=== PATIENT | female | born 1950 | race Caucasian/White ===

== ENCOUNTER 2017-01-29 11:31 | Emergency (ER) | payer OTHER ==
[~2017-01-29] VITALS: Wt 95.0 kg
[~2017-01-29 11:31] MED LIST: AMOX500T PO; BECL8.7A IH; FEXO180T61 PO; FLUO10CA66 PO; OMEP20CA9 PO
--- NOTE | 2017-01-29 12:24 | ERD ---
ER Documentation Chief Complaint Date/Time DATE: 01/29/17 TIME: 12:21 Chief Complaint LEFT KNEE INJURY S/P GLF, NO KO HPI 66-year-old female presents status post fall with left knee pain that occurred yesterday across the stone stair, and she also complains of generalized leg pain. She reports that she just returned from a flight from [place]. Patient states that she hit the front part of her knee, describes achy pain, worse with extension better with flexion, moderate pain, improved with meloxicam. She currently at this time denies chest pain or shortness of breath. ROS All systems reviewed and are negative except as per history of present illness. Medications Home Meds Active Scripts Hydrocodone/Acetaminophen ([place] 5-325 Tablet) 1 Each Tablet, 1 TAB PO Q6H Y for PAIN, #15 TAB Prov:NIKKO PADILLA PA-C 01/29/17 Reported Medications Fexofenadine Hcl* (Marjan*) 180 Mg Tablet, 180 MG PO DAILY 05/12/13 Omeprazole* (Prilosec*) 20 Mg Capsule.dr, 20 MG PO DAILY 05/12/13 Fluoxetine Hcl* (Prozac*) 10 Mg Capsule, 10 MG PO 05/12/13 Beclomethasone Dip* (Qvar 40*) 7.3 Gm Inha, 7.3 GM IH 05/12/13 Amoxicillin Trihydrate (Amoxicillin) 500 Mg Tablet, 500 MG PO TID 05/12/13 Allergies Allergies: Coded Allergies: cyclobenzaprine HCl (Verified Allergy, 05/12/13) propoxyphene HCl (Verified Allergy, 05/12/13) PMhx/Soc History of Surgery: Yes (SHOULDER,FINGER SURGERY) Anesthesia Reaction: No Hx Neurological Disorder: No Hx Respiratory Disorders: Yes (ASTHMA) Hx Cardiac Disorders: No Hx Psychiatric Problems: No Hx Miscellaneous Medical Probl: Yes (FIBROMYALGIA) Hx Alcohol Use: No Hx Substance Use: No Hx Tobacco Use: No Smoking Status: Never smoker Physical Exam Vitals Vital Signs Date Time Temp Pulse Resp B/P Pulse Ox O2 Delivery O2 Flow Rate FiO2 01/29/17 11:36 98.1 87 18 154/88 99 Physical Exam General: Well-developed, well-nourished. The patient appears in no acute distress. HEENT: Head is normocephalic, atraumatic. No scleral icterus. Neck: Supple. Nontender. Lungs: Clear to auscultation. Normal air movement. Heart: Regular rate and rhythm. S1 and S2 are normal. No murmurs, gallops, or rubs. Abdomen: Nondistended. Extremities: Right anterior knee has contusion, there is no joint line tenderness, patient's range of motion with flexion and extension, no bony deformities. Dorsalis pedis pulse 2+, negative Homans sign. Neurologic: Alert and oriented 3. No focal deficits. Normal speech and gait. Skin: Normal turgor. No rash or lesions. Results 24 hrs Current Medications Medications (Trade) Dose Ordered Sig/Nitin Route PRN Reason Start Time Stop Time Status Last Admin Dose Admin Acetaminophen/ Hydrocodone Bitart (Shaniko (10/325)) 1 tab ONCE ONCE PO 01/29/17 12:30 01/29/17 12:31 DC 01/29/17 12:18 PROCEDURE: Ultrasound of the left lower extremity venous system. CLINICAL INDICATION: Left leg pain and swelling, deep venous thrombosis TECHNIQUE: Gage scale with and without compression, color doppler, spectral doppler of the venous system of the left lower extremity was performed. Venous augmentation maneuvers were utilized. COMPARISON: No prior studies are available for comparison. FINDINGS: Common femoral vein: Patent. Femoral vein: Patent. Popliteal vein: Patent. Calf veins: Patent. No soft tissue abnormalities are identified. IMPRESSION: No evidence of a deep vein thrombosis within the left lower extremity. RPTAT: AADD .Leo Aguirre MD, Date Time Electronically viewed and signed by .Leo Aguirre MD, MD on 01/29/2017 13:31 .B/ CC: NIKKO PADILLA PA-C PROCEDURE: XR Knee. CLINICAL INDICATION: Left knee pain TECHNIQUE: 3 images of the left knee are available for review. COMPARISON: None available FINDINGS: There is no acute fracture. Alignment is normal. Small tricompartmental osteophytes are noted. There is a small knee joint effusion. IMPRESSION: 1. No radiographic evidence of acute osseous abnormality. 2. Small knee joint effusion. RPTAT: UU .Frank You MD, MD Date Time Electronically viewed and signed by .Frank You MD, on 01/29/2017 13: 24 .K/ Procedures/MDM ED course: Patient was given Shaniko for pain. MDM: 66-year-old female comes in with left-sided knee pain that was from blunt trauma yesterday, she also returns from a flight and has generalized leg pain. Patient has some swelling resulting from the injury, it appears to be knee contusion. There is no evidence of fracture, dislocation, DVT, cellulitis or limb threatening process. Patient's blood pressure was elevated (>120/80) but appears stable without evidence of hypertension emergency or urgency. The patient was counseled about the risks of hypertension and urged to pursue outpatient monitoring and therapy within a week with their primary care physician. Departure Diagnosis: Primary Impression: Knee injury Condition: NIKKO Mccall PA-C January 29, 2017 12:23
[2017-01-29] MEDS ORDERED: HYDROCODONE/APAP (10/325) TAB PO ONE (12:30)
--- NOTE | 2017-01-29 13:24 | RADRPT ---
PROCEDURE: XR Knee. CLINICAL INDICATION: Left knee pain TECHNIQUE: 3 images of the left knee are available for review. COMPARISON: None available FINDINGS: There is no acute fracture. Alignment is normal. Small tricompartmental osteophytes are noted. There is a small knee joint effusion. IMPRESSION: 1. No radiographic evidence of acute osseous abnormality. 2. Small knee joint effusion. RPTAT: UU .Frank You MD, MD Date Time Electronically viewed and signed by .Frank You MD, on 01/29/2017 13:24 .K/
--- NOTE | 2017-01-29 13:31 | RADRPT ---
PROCEDURE: Ultrasound of the left lower extremity venous system. CLINICAL INDICATION: Left leg pain and swelling, deep venous thrombosis TECHNIQUE: Gage scale with and without compression, color doppler, spectral doppler of the venous system of the left lower extremity was performed. Venous augmentation maneuvers were utilized. COMPARISON: No prior studies are available for comparison. FINDINGS: Common femoral vein: Patent. Femoral vein: Patent. Popliteal vein: Patent. Calf veins: Patent. No soft tissue abnormalities are identified. IMPRESSION: No evidence of a deep vein thrombosis within the left lower extremity. RPTAT: AADD .Leo Aguirre MD, MD Date Time Electronically viewed and signed by .Leo Aguirre MD, on 01/29/2017 13:31 .B/
[2017-01-29] MEDS ORDERED: HYDR-906 PO (13:42)
== END 2017-01-29 14:15 | disposition home or self-care (01) ==
LOC: FTE 11:31
DX: S89.92XA Unspecified injury of left lower leg, initial encounter (principal); J45.909 Unspecified asthma, uncomplicated; W18.09XA Striking against other object with subsequent fall, initial encounter; Y92.9 Unspecified place or not applicable
CPT/HCPCS: 73562; 93971

== ENCOUNTER 2019-01-03 17:18 | Inpatient (IN) | payer OTHER ==
[~2019-01-03] VITALS: Ht 172.7 cm; Wt 90.6 kg
[~2019-01-03 17:18] MED LIST changes: +FLUO10CA26 PO; -FLUO10CA66 PO; +HYDR-4011 PO
[2019-01-03] MEDS ORDERED: KETOROLAC 30 MG INJ IV STA (17:40)
--- NOTE | 2019-01-03 17:46 | STROKE ---
Date/Time of Note Date/Time of Note DATE: 01/03/19 TIME: 19:31 Patient Information General Arrival Date Age 68 Gender female Weight Patient History Current Medications Allergies: Coded Allergies: cyclobenzaprine HCl (Verified Allergy, 05/12/13) propoxyphene HCl (Verified Allergy, 05/12/13) History & Physical History of Present Illness 68yo woman h/o htn consulted for left sided numbness. Onset 430pm. Was driving and noted left face tingling and numbness spreading to left arm, associated with headache, left eye appearing droopy. Tingling spread to right side of lips. NIH Stroke Scale NIH Stroke Scale [id number] l4d LOC Questions: Xcenp1h LOC Commands: Anddw5g t Gaze: Qbpyb3z Kkcuj1r alsy: Tiztw4m rm - Left: Melfx4j ight: Pibjh7r eft: Uvjqq0l ight: Kyscu5r Napud9d Mrnvw5y est Language: Kroac2f ivan: Nuxct5a Juetw2f 4Bd Total Score: Hqmsd8j Date/Time Recorded DATE: 01/03/19 TIME: 19:31 Submitted By Romulo Roman t-PA Imaging Review Date/Time Imaging Reviewed DATE: 01/03/19 TIME: 19:[address]: no acute intracranial process t-PA Administration Weight Recommedation submitted by Romulo Roman Recommendations Recommendation NIHSS 1. Imaging with no acute process. Atypical evolution of sxs for acute ischemic stroke yet possible. Not a tPA candidate given nondisabling sxs. Other consideration is migraine with aura given distant h/o of migraine with aura (tingling). Rec trial of migraine cocktail. Yet given focality of sxs, rec MRI head to r/o an acute intracranial process. ROMULO ROMAN Jan 03, 2019 17:46
[2019-01-03] MEDS ORDERED: FEXO180T61 PO (17:53)
[2019-01-03] MEDS ORDERED: VITA200C45 PO (17:54)
[2019-01-03] MEDS ORDERED: BUDE6.9H INHALATION (17:54)
[2019-01-03] MEDS ORDERED: OLME1TAB PO (17:55)
[2019-01-03] MEDS ORDERED: OMEP40CA6 PO (17:55)
[2019-01-03] MEDS ORDERED: DULO30CA47 PO (17:56)
[2019-01-03] MEDS ORDERED: MELO15TA30 PO (17:56)
[2019-01-03] MEDS ORDERED: CHOL100062 PO (17:57)
[2019-01-03] MEDS ORDERED: CALC-143 PO (17:57)
[2019-01-03] MEDS ORDERED: ASPIRIN 325 MG TAB PO ONE (18:00)
[2019-01-03] MEDS ORDERED: MAGNESIUM SULFATE 2 GM/50 ML 50 ML IVPB ONE (18:00)
[2019-01-03] MEDS ORDERED: METOCLOPRAMIDE 10 MG INJ IV ONE (18:00)
[2019-01-03] MEDS ORDERED: DIPHENHYDRAMINE 50 MG INJ IV ONE (18:00)
[2019-01-03] MEDS ORDERED: ACETAMINOPHEN 325 MG TAB PO PRN (18:30)
[2019-01-03] MEDS ORDERED: ONDANSETRON 4 MG INJ IV PRN (18:30)
--- NOTE | 2019-01-03 19:10 | HP ---
Date/Time of Note Date/Time of Note DATE: 01/03/19 TIME: 19:08 Assessment/Plan VTE Prophylaxis Pharmacological prophylaxis: heparin Lines/Catheters IV Catheter Type (from Nrs): Saline Lock Assessment/Plan Hospital Course This is a 68-year-old female with a history of fibromyalgia, asthma who presents with left sided facial numbness extending into her arm -Certainly this is concerning for a CVA but it is reassuring that her head CT is normal. We will follow the recommendations of tele-neurology and pursue a brain MRI as well as a carotid duplex -Certainly this could be early Guerrero's palsy -Complicated migraine is a consideration Result Diagram: 01/03/19 1736 01/03/19 1736 Results 24hrs Laboratory Tests Test 01/03/19 17:36 White Blood Count 6.5 Red Blood Count 4.04 L Hemoglobin 11.9 L Hematocrit 35.8 L Mean Corpuscular Volume 88.6 Mean Corpuscular Hemoglobin 29.5 Mean Corpuscular Hemoglobin Concent 33.2 Red Cell Distribution Width 13.5 Platelet Count 293 Mean Platelet Volume 9.2 Immature Granulocytes % 0.300 Neutrophils % 60.0 Lymphocytes % 31.2 Monocytes % 6.0 Eosinophils % 1.9 Basophils % 0.6 Nucleated Red Blood Cells % 0.0 Immature Granulocytes # 0.020 Neutrophils # 3.9 Lymphocytes # 2.0 Monocytes # 0.4 Eosinophils # 0.1 Basophils # 0.0 Nucleated Red Blood Cells # 0.0 Prothrombin Time 12.1 Prothrombin Time Ratio 0.9 INR International Normalized Ratio 0.89 Activated Partial Thromboplast Time 27.2 Sodium Level 134 L Potassium Level 3.7 Chloride Level 95 L Carbon Dioxide Level 26 Anion Gap 13 Blood Urea Nitrogen 22 H Creatinine 0.87 Est Glomerular Filtrat Rate mL/min > 60 Glucose Level 96 Hemoglobin A1c 6.1 H Calcium Level 10.1 Creatine Kinase 246 H Creatine Kinase Index 0.5 Creatinine Kinase MB (Mass) 1.19 Troponin I < 0.012 Triglycerides Level 196 H Cholesterol Level 210 H LDL Cholesterol, Calculated 124 HDL Cholesterol 47 Cholesterol/HDL Ratio 4.4 Ethyl Alcohol Level < 10.0 H HPI/ROS Admit Date/Time Admit Date/Time Hx of Present Illness This is a 68-year-old female with a history of fibromyalgia, asthma who presents with left facial numbness The patient was in her usual state of health until today. She was driving home from work when she began to feel numbness located in the left side of her face from forehead to chin. This progressed down through her left arm. She also developed a headache not very severe. Her numbness has persisted until now so she came to the ED for evaluation. She denies any local weakness but does complain of paresthesias and numbness on her left side of her face. No chest symptoms. She does states she had a sinus infection about a week ago but does not feel the symptoms now ROS Constitutional: no complaints, improved Eyes: no complaints ENT: no complaints Respiratory: no complaints Cardiovascular: no complaints Gastrointestinal: no complaints Genitourinary: no complaints Musculoskeletal: no complaints Skin: no complaints Neurologic: no complaints Endocrine: no complaints Lymphatic: no complaints Psychological: no complaints, nl mood/affect Immunologic: no complaints PMH/Family/Social Past Medical History Medical History: no pertinent history Medications Current Medications Magnesium Sulfate 50 ml @ 25 mls/hr ONCE ONCE IVPB ; Start 01/03/19 at 18:00; Stop 01/03/19 at 19:59 Ondansetron HCl (Zofran Inj) 4 mg ER BRIDGE PRN IV NAUSEA/VOMITING; Start 01/03/19 at 18:30; Stop 01/04/19 at 18:29 Acetaminophen (Tylenol Tab) 650 mg ER BRIDGE PRN PO .MILD PAIN 1-3 OR TEMP; Start 01/03/19 at 18:30; Stop 01/04/19 at 18:29 Duloxetine HCl (Cymbalta) 30 mg DAILY PO ; Start 01/04/19 at 09:00; Status UNV Miscellaneous Information 2 puff BID INHALATION ; Start 01/03/19 at 21:00; Status UNV Miscellaneous Information 1 each DAILY PO ; Start 01/04/19 at 09:00; Status UNV Coded Allergies: cyclobenzaprine HCl (Verified Allergy, Unknown, 01/03/19) propoxyphene HCl (Verified Allergy, Unknown, 01/03/19) Past Surgical History Past Surgical Hx: no surgical history Family History Significant Family History: no pertinent family hx Social History Alcohol Use: none Smoking Status: Never smoker Drug Use: none Exam/Review of Systems Vital Signs Vitals Vital Signs Date Temp Pulse Resp B/P (MAP) Pulse Ox O2 O2 Flow FiO2 Time Delivery Rate 4/30/19 98.2 87 18 153/92 99 17:42 (112) Exam Constitutional: alert, oriented, well developed Psych: no complaints, nl mood/affect Head: normocephalic, atraumatic Eyes: nl conjunctiva, EOMI, nl lids, nl sclera, PERRL ENMT: nl external ears & nose, nl lips & teeth, nl nasal mucosa & septum Neck: supple, non-tender Respiratory: clear to auscultation, normal air movement Cardiovascular: regular rate and rhythm, nl pulses Gastrointestinal: soft, nl liver, spleen, non-tender Musculoskeletal: nl extremities to inspection Extremities: normal pulses Neurological: CHAR BELT OPERATOR II-XII intact, nl mental status, nl speech, nl strength Skin: nl turgor; No rash or lesions Lymph: nl lymph nodes NEIL CARL MD Jan 03, 2019 19:10
--- NOTE | 2019-01-03 19:17 | ERD ---
ER Documentation Chief Complaint Chief Complaint NUMBNESS TO LEFT SIDE OF FACE WITH NO MOTOR DEF. ONSET AT 1630 HPI Patient is a 68-year-old female with hypertension who presents with facial tingling. Patient is a 30 minutes prior she started with left-sided facial tingling and said that "my left eye was droopy". She said that she feels like she has slurred speech. She had left arm numbness as well. She felt off balance. She had a left-sided headache. She was driving at the time. She says "I am worried I'm having a stroke". Upon review of old medical records this is the patient's third visit to the ER since 2012. ROS All systems reviewed and are negative except as per history of present illness. Medications Home Meds Reported Medications Cholecalciferol* (Vitamin D3*) 1,000 Unit Tablet, 1000 UNIT PO DAILY, TAB 01/03/19 Calcium Citrate/Vitamin D (Citracal-Vitamin D 200 MG-250) 1 Each Tablet, 1 EACH PO DAILY, TAB 01/03/19 Meloxicam* (Mobic*) 15 Mg Tablet, 15 MG PO DAILY, #30 TAB 01/03/19 Duloxetine Hcl* (Duloxetine Hcl*) 30 Mg Capsule.dr, 30 MG PO DAILY, #30 CAP 01/03/19 Olmesartan/Hydrochlorothiazide (Olmesartan-Hctz 40-25 mg Tab) 1 Each Tablet, 1 EACH PO DAILY, TAB 01/03/19 Omeprazole* (Omeprazole*) 40 Mg Capsule.dr, 40 MG PO DAILY, #30 CAP 01/03/19 Vitamin E* (Vitamin E*) 200 Unit Capsule, 400 UNIT PO DAILY, CAP 01/03/19 Budesonide-Formoterol Fumarate* (Symbicort*) 80-4.5 Mcg Hfa.aer.ad, 2 PUFF INHA LATION BID, BOTTLE 01/03/19 Fexofenadine Hcl* (Marjan*) 180 Mg Tablet, 180 MG PO DAILY, #30 TAB 01/03/19 Discontinued Reported Medications Fexofenadine Hcl* (Marjan*) 180 Mg Tablet, 180 MG PO DAILY 05/12/13 Omeprazole* (Prilosec*) 20 Mg Capsule.dr, 20 MG PO DAILY 05/12/13 Fluoxetine Hcl* (Prozac*) 10 Mg Capsule, 10 MG PO 9/6/13 Beclomethasone Dip* (Qvar 40*) 7.3 Gm Inha, 7.3 GM IH 05/12/13 Amoxicillin Trihydrate (Amoxicillin) 500 Mg Tablet, 500 MG PO TID 05/12/13 Discontinued Scripts Hydrocodone/Acetaminophen ([place] 5-325 Tablet) 1 Each Tablet, 1 TAB PO Q6H PRN for PAIN, #15 TAB Prov:NIKKO PADILLA PA-C 01/29/17 Allergies Allergies: Coded Allergies: cyclobenzaprine HCl (Verified Allergy, Unknown, 01/03/19) propoxyphene HCl (Verified Allergy, Unknown, 01/03/19) PMhx/Soc History of Surgery: Yes (SHOULDER,FINGER SURGERY) Anesthesia Reaction: No Hx Neurological Disorder: No Hx Respiratory Disorders: Yes (ASTHMA) Hx Cardiac Disorders: No Hx Psychiatric Problems: No Hx Miscellaneous Medical Probl: Yes (FIBROMYALGIA) Hx Alcohol Use: No Hx Substance Use: No Hx Tobacco Use: No Smoking Status: Never smoker FmHx Family History: diabetes Physical Exam Vitals Vital Signs Date Temp Pulse Resp B/P (MAP) Pulse Ox O2 O2 Flow FiO2 Time Delivery Rate 01/03/19 98.2 78 18 142/87 99 Room Air 19:07 (105) 01/03/19 98.2 87 18 153/92 99 17:42 (112) Physical Exam Const: No acute distress Head: Atraumatic Eyes: Normal Conjunctiva ENT: Normal External Ears, Nose and Mouth. Neck: Full range of motion. No meningismus. Resp: Clear to auscultation bilaterally Cardio: Regular rate and rhythm, no murmurs Abd: Soft, non tender, non distended. Normal bowel sounds Skin: No petechiae or rashes Back: No midline or flank tenderness Ext: No cyanosis, or edema Neur: Awake and alert, cranial nerves II through XII are intact, strength is 5 out of 5 in all 4 extremity's, no pronator drift, no slurred speech, patient reports some numbness to the left arm Psych: Anxious Result Diagram: 01/03/19 1736 01/03/19 1736 Results 24 hrs Laboratory Tests Test 01/03/19 17:36 White Blood Count 6.5 10^3/ul Red Blood Count 4.04 10^6/ul Hemoglobin 11.9 g/dl Hematocrit 35.8 % Mean Corpuscular Volume 88.6 fl Mean Corpuscular Hemoglobin 29.5 pg Mean Corpuscular Hemoglobin Concent 33.2 g/dl Red Cell Distribution Width 13.5 % Platelet Count 293 10^3/UL Mean Platelet Volume 9.2 fl Immature Granulocytes % 0.300 % Neutrophils % 60.0 % Lymphocytes % 31.2 % Monocytes % 6.0 % Eosinophils % 1.9 % Basophils % 0.6 % Nucleated Red Blood Cells % 0.0 /100WBC Immature Granulocytes # 0.020 10^3/ul Neutrophils # 3.9 10^3/ul Lymphocytes # 2.0 10^3/ul Monocytes # 0.4 10^3/ul Eosinophils # 0.1 10^3/ul Basophils # 0.0 10^3/ul Nucleated Red Blood Cells # 0.0 10^3/ul Prothrombin Time 12.1 Sec Prothrombin Time Ratio 0.9 INR International Normalized Ratio 0.89 Activated Partial Thromboplast Time 27.2 Sec Sodium Level 134 mmol/L Potassium Level 3.7 mmol/L Chloride Level 95 mmol/L Carbon Dioxide Level 26 mmol/L Anion Gap 13 Blood Urea Nitrogen 22 mg/dl Creatinine 0.87 mg/dl Est Glomerular Filtrat Rate mL/min > 60 mL/min Glucose Level 96 mg/dl Hemoglobin A1c 6.1 % Calcium Level 10.1 mg/dl Creatine Kinase 246 IU/L Creatine Kinase Index 0.5 Creatinine Kinase MB (Mass) 1.19 ng/ml Troponin I < 0.012 ng/ml Triglycerides Level 196 mg/dl Cholesterol Level 210 mg/dl LDL Cholesterol, Calculated 124 mg/dl HDL Cholesterol 47 mg/dl Cholesterol/HDL Ratio 4.4 RATIO Ethyl Alcohol Level < 10.0 mg/dl Current Medications Medications Dose Sig/Nitin Start Time Status Last (Trade) Ordered Route PRN Stop Time Admin Dose Reason Admin Aspirin 325 mg ONCE ONCE 01/03/19 DC (Aspirin) PO 18:00 01/03/19 18:01 Magnesium 50 ml @ 25 ONCE ONCE 01/03/19 Sulfate mls/hr IVPB 18:00 01/03/19 19:59 10 mg ONCE ONCE 01/03/19 DC 01/03/19 Metoclopramid IV 18:00 19:08 e HCl 01/03/19 18:01 (Reglan) 25 mg ONCE ONCE 01/03/19 DC Diphenhydrami IV 18:00 ne HCl 01/03/19 18:01 (Benadryl) Ketorolac 30 mg ONCE STAT 01/03/19 DC 01/03/19 Tromethamine IV 17:40 19:09 (Toradol) 01/03/19 17:41 Ondansetron 4 mg ER BRIDGE 01/03/19 HCl (Zofran PRN IV 18:30 01/04/19 Inj) NAUSEA/VOMITI 18:29 NG 650 mg ER BRIDGE 01/03/19 Acetaminophen PRN PO 18:30 01/04/19 (Tylenol .MILD PAIN 18:29 Tab) 1-3 OR TEMP Duloxetine 30 mg DAILY PO 01/04/19 UNV HCl 09:00 (Cymbalta) 2 puff BID 01/03/19 UNV Miscellaneous INHALATION 21:00 Information 1 each DAILY PO 01/04/19 UNV Miscellaneous 09:00 Information Procedures/MDM EKG read by me: Rate/Rhythm: Regular rate and rhythm at a normal rate Intervals: Normal Impression: No evidence of ischemia or arrhythmia CT brain read by radiology. Chest x-ray read by radiology. Patient had a code stroke called upon arrival. Code stroke was called from triage. The times are as follows: 1718evaluation done by myself 1721directed CT scan 1728I spoke with Dr. Kam who will evaluate the patient from neurology 1736radiology read the CT has no bleeding 1741the patient was recommended for no TPA per Dr. Kam given the symptoms that could potentially be complicated migraine and very low NIH stroke scale Patient is a 68-year-old female who presents with stroke versus complicated migraine. She is not a TPA candidate per Dr. Kam. I doubt large vessel occlusion I believe the risk of doing a CTA outweigh the benefits at this time. She was given aspirin after she passed a swallow evaluation. NIH stroke scale was done. I also ordered pain medications for possible migraine. The patient will be admitted to a telemetry bed to the care of Dr. Crawford. Critical Care: Time: 35 minutes excluding all billable procedures. Treatments/Evaluations: Close monitoring and treatment of unstable vital signs, cardiorespiratory, and neurologic status, while maintaining tight balance of fluid, respiratory, and cardiac interventions. Departure Diagnosis: Primary Impression: Stroke CVA mechanism: unspecified Qualified Codes: I63.9 - Cerebral infarction, unspecified Additional Impression: Acute weakness Condition: JEREMY Rosales MD Jan 03, 2019 19:17
[2019-01-03 20:00] VITALS: Ht 172.7 cm; Wt 90.6 kg
[2019-01-03 21:18] VITALS: BP 143/74; PULSE 78; RESP 19
[2019-01-03 21:19] VITALS: PULSE 84
[2019-01-03 23:33] VITALS: BP 138/78; PULSE 73; RESP 18
[2019-01-04] VITALS (7 sets, daily range): BP systolic 116–123; BP diastolic 68–72; PULSE 63–78; RESP 19
[2019-01-04] MEDS ORDERED: FLUTICASONE/VILANTEROL 100-25 INH SCH (09:00)
[2019-01-04] MEDS ORDERED: HYDROCHLOROTHIAZIDE 25 MG TAB PO SCH (09:00)
[2019-01-04] MEDS ORDERED: DULOXETINE 30 MG CAP DR PO SCH (09:00)
[2019-01-04] MEDS ORDERED: LOSARTAN 50 MG TAB PO SCH (09:00)
--- NOTE | 2019-01-04 11:37 | PDOCDIS ---
Discharge Instructions DIAGNOSIS Discharge Diagnosis Numbness CONDITION [id number] Patient Condition: [id number] Stable FOLLOW UP/APPOINTMENTS Follow-up Plan Make an appointment to see a neurologist if your symptoms persist NEIL CARL MD January 04, 2019 11:37
--- NOTE | 2019-01-04 13:36 | DS ---
Date/Time of Note Date/Time of Note DATE: 01/04/19 TIME: 13:35 Discharge Summary Admission/Discharge Info Admit Date/Time Jan 03, 2019 at 18:18 Discharge Date/Time January 04, 2019 at 13:10 Discharge Diagnosis Numbness Patient Condition: Stable Hx of Present Illness This is a 68-year-old female with a history of fibromyalgia, asthma who presents with left facial numbness The patient was in her usual state of health until today. She was driving home from work when she began to feel numbness located in the left side of her face from forehead to chin. This progressed down through her left arm. She also developed a headache not very severe. Her numbness has persisted until now so she came to the ED for evaluation. She denies any local weakness but does complain of paresthesias and numbness on her left side of her face. No chest symptoms. She does states she had a sinus infection about a week ago but does not feel the symptoms now Hospital Course This is a 68-year-old female with a history of fibromyalgia, asthma who presented with left sided facial numbness extending into her arm Teleneurology was called by ED staff. No recommendation for TPA. CT brain was without acute pathology. MRI brain was performed which showed no acute pathology. Carotid duplex was without stenosis. Her symptoms of numbness resolved. Mild headache. No entirely clear to me what explains her symptoms but given no acute pathology she is safe for discharge with outpatinet follow u p. Home Meds Reported Medications Cholecalciferol* (Vitamin D3*) 1,000 Unit Tablet, 1000 UNIT PO DAILY, TAB 01/03/19 Calcium Citrate/Vitamin D (Citracal-Vitamin D 200 MG-250) 1 Each Tablet, 1 EACH PO DAILY, TAB 01/03/19 Meloxicam* (Mobic*) 15 Mg Tablet, 15 MG PO DAILY, #30 TAB 01/03/19 Duloxetine Hcl* (Duloxetine Hcl*) 30 Mg Capsule.dr, 30 MG PO DAILY, #30 CAP 01/03/19 Olmesartan/Hydrochlorothiazide (Olmesartan-Hctz 40-25 mg Tab) 1 Each Tablet, 1 EACH PO DAILY, TAB 01/03/19 Omeprazole* (Omeprazole*) 40 Mg Capsule.dr, 40 MG PO DAILY, #30 CAP 01/03/19 Vitamin E* (Vitamin E*) 200 Unit Capsule, 400 UNIT PO DAILY, CAP 01/03/19 Budesonide-Formoterol Fumarate* (Symbicort*) 80-4.5 Mcg Hfa.aer.ad, 2 PUFF INHALATION BID, BOTTLE 01/03/19 Fexofenadine Hcl* (Marjan*) 180 Mg Tablet, 180 MG PO DAILY, #30 TAB 01/03/19 Discontinued Reported Medications Fexofenadine Hcl* (Marjan*) 180 Mg Tablet, 180 MG PO DAILY 05/12/13 Omeprazole* (Prilosec*) 20 Mg Capsule.dr, 20 MG PO DAILY 05/12/13 Fluoxetine Hcl* (Prozac*) 10 Mg Capsule, 10 MG PO 05/12/13 Beclomethasone Dip* (Qvar 40*) 7.3 Gm Inha, 7.3 GM IH 05/12/13 Amoxicillin Trihydrate (Amoxicillin) 500 Mg Tablet, 500 MG PO TID 05/12/13 Discontinued Scripts Hydrocodone/Acetaminophen ([place] 5-325 Tablet) 1 Each Tablet, 1 TAB PO Q6H PRN for PAIN, #15 TAB Prov:NIKKO PADILLA PA-C 01/29/17 Follow-up Plan Make an appointment to see a neurologist if your symptoms persist Primary Care Provider Not On Staff Doctor Pending Labs Laboratory Tests Test 01/03/19 17:36 White Blood Count 6.5 10^3/ul (4.8-10.8) Red Blood Count 4.04 10^6/ul (4.20-5.40) Hemoglobin 11.9 g/dl (12.0-16.0) Hematocrit 35.8 % (37.0-47.0) Mean Corpuscular Volume 88.6 fl (82.0-101.0) Mean Corpuscular Hemoglobin 29.5 pg (29.0-33.0) Mean Corpuscular Hemoglobin Concent 33.2 g/dl (32.0-37.0) Red Cell Distribution Width 13.5 % (11.5-14.5) Platelet Count 293 10^3/UL (140-415) Mean Platelet Volume 9.2 fl (7.4-10.4) Immature Granulocytes % 0.300 % (0.001-0.429) Neutrophils % 60.0 % (39.0-77.0) Lymphocytes % 31.2 % (15.0-51.0) Monocytes % 6.0 % (0.0-11.0) Eosinophils % 1.9 % (0.0-7.0) Basophils % 0.6 % (0.0-2.0) Nucleated Red Blood Cells % 0.0 /100WBC (0.0-0.0) Immature Granulocytes # 0.020 10^3/ul (0.0-0.031) Neutrophils # 3.9 10^3/ul (1.6-7.5) Lymphocytes # 2.0 10^3/ul (0.8-2.9) Monocytes # 0.4 10^3/ul (0.3-0.9) Eosinophils # 0.1 10^3/ul (0.0-0.5) Basophils # 0.0 10^3/ul (0.0-0.1) Nucleated Red Blood Cells # 0.0 10^3/ul (0.0-0.0) Prothrombin Time 12.1 Sec (11.9-14.9) Prothrombin Time Ratio 0.9 INR International Normalized Ratio 0.89 Activated Partial Thromboplast Time 27.2 Sec (23.0-35.0) Sodium Level 134 mmol/L (135-144) Potassium Level 3.7 mmol/L (3.5-5.1) Chloride Level 95 mmol/L (97-110) Carbon Dioxide Level 26 mmol/L (21-31) Anion Gap 13 (5-13) Blood Urea Nitrogen 22 mg/dl (7-20) Creatinine 0.87 mg/dl (0.44-1.00) Est Glomerular Filtrat Rate mL/min > 60 mL/min (>60) Glucose Level 96 mg/dl (70-220) Hemoglobin A1c 6.1 % (0-5.9) Calcium Level 10.1 mg/dl (8.4-10.2) Creatine Kinase 246 IU/L (23-200) Creatine Kinase Index 0.5 Creatinine Kinase MB (Mass) 1.19 ng/ml (0.0-2.4) Troponin I < 0.012 ng/ml (0.000-0.120) Triglycerides Level 196 mg/dl (0-149) Cholesterol Level 210 mg/dl (100-200) LDL Cholesterol, Calculated 124 mg/dl HDL Cholesterol 47 mg/dl (33-92) Cholesterol/HDL Ratio 4.4 RATIO Ethyl Alcohol Level < 10.0 mg/dl (0-0) NEIL CARL MD January 04, 2019 13:36
== END 2019-01-04 13:10 | disposition home or self-care (01) | DRG 93 ==
LOC: E/R 17:18 → 6WM 18:18 → SUATTDRO 18:57
PROVIDERS: ADMIT Internal Medicine; ATTEND Internal Medicine
DX: R20.0 Anesthesia of skin (principal); G43.109 Migraine with aura, not intractable, without status migrainosus; M79.7 Fibromyalgia; J45.909 Unspecified asthma, uncomplicated; Z79.82 Long term (current) use of aspirin
CPT/HCPCS: 70450; 70551; 71045; 80048; 80061; 80307; 82550; 82553; 83036; 84484; 85025; 85610; 85730; 93005; 93880; 96374; 96375; J1200; J1885; J2765; J3475

== ENCOUNTER → 2019-03-10 | Emergency (ER) | payer OTHER ==
[~2019-03-10] VITALS: Ht 170.2 cm; Wt 91.1 kg
[~2019-03-10] MED LIST changes: +ACETAMINOPHEN 325 MG TAB PO ONE; -AMOX500T PO; -BECL8.7A IH; +BUDE6.9H INHALATION; +CALC-143 PO; +CEPH-443 PO; +CHOL100062 PO; +DIPHTH/TET/ACEL PERTUSS (ADULT) 0.5 ML VIAL IM* ONE; +DULO30CA47 PO; -FLUO10CA26 PO; -HYDR-4011 PO; +MELO15TA30 PO; +OLME1TAB PO; -OMEP20CA9 PO; +OMEP40CA6 PO; +VITA200C45 PO
[2019-03-10 12:26] VITALS: BP 134/73; PULSE 87; RESP 18; Ht 170.2 cm; Wt 91.1 kg
--- NOTE | 2019-03-10 16:22 | ERD ---
ER Documentation Chief Complaint Chief Complaint hematoma on forehead , lt foot pain s/p trip and fall today , no k/o HPI 68-year-old female presents after tripping and falling while working the garden today. She complains of pain in the left big toe where she stubbed her toe as well as right wrist pain and also she has a hematoma on her right forehead with an abrasion. There is headache and possible dizziness without loss of consciousness, deficits, additional symptoms. She has mild neck pain as well. She states that she has a history of fibromyalgia as well as a bleeding ulcer. Patient is uncertain of last tetanus shot ROS All systems reviewed and are negative except as per history of present illness. Medications Home Meds Active Scripts Cephalexin* (Keflex*) 500 Mg Capsule, 500 MG PO QID for 5 Days, CAP Prov:KAUR TALBOT MD 03/10/19 Reported Medications Cholecalciferol* (Vitamin D3*) 1,000 Unit Tablet, 1000 UNIT PO DAILY, TAB 01/03/19 Calcium Citrate/Vitamin D (Citracal-Vitamin D 200 MG-250) 1 Each Tablet, 1 EACH PO DAILY, TAB 01/03/19 Meloxicam* (Mobic*) 15 Mg Tablet, 15 MG PO DAILY, #30 TAB 01/03/19 Duloxetine Hcl* (Duloxetine Hcl*) 30 Mg Capsule.dr, 30 MG PO DAILY, #30 CAP 01/03/19 Olmesartan/Hydrochlorothiazide (Olmesartan-Hctz 40-25 mg Tab) 1 Each Tablet, 1 EACH PO DAILY, TAB 01/03/19 Omeprazole* (Omeprazole*) 40 Mg Capsule.dr, 40 MG PO DAILY, #30 CAP 01/03/19 Vitamin E* (Vitamin E*) 200 Unit Capsule, 400 UNIT PO DAILY, CAP 01/03/19 Budesonide-Formoterol Fumarate* (Symbicort*) 80-4.5 Mcg Hfa.aer.ad, 2 PUFF INHALATION BID, BOTTLE 01/03/19 Fexofenadine Hcl* (Marjan*) 180 Mg Tablet, 180 MG PO DAILY, #30 TAB 01/03/19 Allergies Allergies: Coded Allergies: cyclobenzaprine HCl (Verified Allergy, Unknown, 01/03/19) propoxyphene HCl (Verified Allergy, Unknown, 01/03/19) PMhx/Soc History of Surgery: Yes (SHOULDER SX,left middle finger sx,d&C) Anesthesia Reaction: No Hx Neurological Disorder: No Hx Respiratory Disorders: Yes Hx Cardiac Disorders: Yes (HTN) Hx Psychiatric Problems: No Hx Miscellaneous Medical Probl: Yes (Fibromyalgia, Hyperlipidemia) Hx Alcohol Use: No Hx Substance Use: No Hx Tobacco Use: No Smoking Status: Never smoker FmHx Family History: No diabetes, No coronary disease, No other Physical Exam Vitals Vital Signs Date Temp Pulse Resp B/P (MAP) Pulse Ox O2 O2 Flow FiO2 Time Delivery Rate 03/10/19 98.1 87 18 134/73 98 12:26 (93) Physical Exam Const: No acute distress Head: Right forehead hematoma with abrasion. No active bleeding or erythema. Eyes: Normal Conjunctiva and eyes Omero. ENT: Normal External Ears, Nose and Mouth. Hemotympanum. Neck: Full range of motion. No meningismus. Mild generalized cervical paraspinous muscle Tenderness. no exquisite midline tenderness or deformities. Resp: Clear to auscultation bilaterally Cardio: Regular rate and rhythm, no murmurs Abd: Soft, non tender, non distended. Normal bowel sounds Skin: No petechiae or rashes Back: No midline or flank tenderness Ext: No cyanosis, or edema mild tenderness right wrist without deformities, restricted range of motion or deficits. Mild tenderness and swelling of the left big toe without erythema, bleeding or discharge. Neur: Awake and alert Psych: Normal Mood and Affect Results 24 hrs Current Medications Medications Dose Sig/Nitin Start Time Status Last (Trade) Ordered Route PRN Stop Time Admin Dose Reason Admin 650 mg ONCE ONCE 03/10/19 DC 03/10/19 Acetaminophen PO 14:00 03/10/19 13:46 (Tylenol 14:01 Tab) Diphtheria/ 0.5 ml ONCE ONCE 03/10/19 DC 03/10/19 Tetanus/Acell IM* 15:30 03/10/19 15:26 Pertussis 15:31 (Adacel) Procedures/MDM CT brain shows no acute abnormalities. CT cervical spine shows no acute abnormalities as well. X-ray left big toe 2V Interpreted by me: Bones: No fracture Joints: No dislocation Foreign Body: None. Impression-normal left big toe x-ray X-ray right wrist 3V Interpreted by me: Scaphoid: Normal Bones: No fracture Joints: No dislocation Foreign body: None. Impression-normal right wrist x-ray Patient administered a tetanus booster by request. Patient had her right forehead abrasion cleansed and dressed. Patient given Tylenol for pain. After mechanical fall today. She has signs of a forehead hematoma and abrasion without signs of bleeding, fracture, additional concerning signs or symptoms. She has no signs of significant neck injury. She also has symptoms of left toe sprain and right wrist fracture without identified fracture dislocation or concerning abnormalities. She will be given Keflex that she is concerned about her dirty wound and is requesting antibiotics. She will be discharged home with return precautions and primary care follow-up. The patient was stable with no new complaints during the ER course. Clinically, there is no current evidence to suggest meningitis, sepsis, acute abdomen, pneumonia, stroke, acute coronary syndrome, pulmonary embolism, aortic dissection or any other emergent condition appearing to require further evaluation or hospitalization. Patient counseled regarding my diagnostic impression and care plan. Prior to discharge all questions answered. Pt agrees with treatment plan and understands strict return precautions. Pt is instructed to follow up with primary care provider within 24- 48 hours. Precautionary instructions provided including instructions to return to the ER if not improving or for any worsening or changing symptoms or concerns. Disclaimer: Inadvertent spelling and grammatical errors are likely due to EHR/dictation software use and do not reflect on the overall quality of patient care. Also, please note that the electronic time recorded on this note does not necessarily reflect the actual time of the patient encounter. Departure Diagnosis: Primary Impression: Toe sprain Encounter type: initial encounter Qualified Codes: S93.509A - Unspecified sprain of unspecified toe(s), initial encounter Additional Impressions: Head injury Encounter type: initial encounter Qualified Codes: S09.90XA - Unspecified injury of head, initial encounter Fall Encounter type: initial encounter Qualified Codes: W19.XXXA - Unspecified fall, initial encounter Condition: Stable Patient Instructions: Fall, Mechanical, Sprain Toe Additional Instructions: All studies showed no acute abnormalities. Recheck for new worsening symptoms s uch as redness, swelling, fevers, or with primary care doctor. Okay to take Tylenol every 4 hours for pain. KAUR TALBOT MD Mar 10, 2019 16:22
== END | disposition home or self-care (01) ==
LOC: FTE 12:17
DX: S00.83XA Contusion of other part of head, initial encounter (principal); S93.502A Unspecified sprain of left great toe, initial encounter; I10 Essential (primary) hypertension; W01.0XXA Fall on same level from slipping, tripping and stumbling without subsequent striking against object, initial encounter; Y92.9 Unspecified place or not applicable; Z23 Encounter for immunization
CPT/HCPCS: 70450; 72125; 73660; 90471; 90715